=== PATIENT | female | born 1985 | race Caucasian/White ===

== ENCOUNTER 2016-07-13 21:00 | Emergency (ER) | payer OTHER ==
[2016-07-13 21:30] VITALS: BP 124/72
[2016-07-13] MEDS ORDERED: predniSONE TAB* 20 MG PO ONE (21:42)
[2016-07-13] MEDS ORDERED: Cephalexin CAP* 500 MG PO ONE (21:42)
--- NOTE | 2016-07-13 21:45 | UC ---
Throat Pain/Nasal Ar HPI - HPI Summary HPI Summary: 30 yo female with 5 day hx of sore throat also some n/v/d but none today no f/c - History of Current Complaint Chief Complaint: UCGeneralIllness Stated Complaint: ST/FEVER/CHILLS Time Seen by Provider: 07/13/16 21:21 Hx Obtained From: Patient Hx Last Menstrual Period: 05/03/2016 Onset/Duration: Gradual Onset, Lasting Days Severity: Moderate Pain Intensity: 4 Pain Scale Used: 0-10 Numeric Cough: None Associated Signs & Symptoms: Negative: Dysphagia, FB Sensation, Drooling, Wheezing, Hoarseness, Sinus Discomfort, Nasal Discharge, Fever, Vomiting, Rash - Epiglottits Risk Factors Epiglottis Risk Factors: Negative - Allergies/Home Medications Allergies/Adverse Reactions: Allergies Allergy/AdvReac Type Severity Reaction Status Date / Time No Known Allergies Allergy Verified 07/13/16 21:12 Home Medications: Home Medications Ibuprofen TAB* [Advil TAB*] 600 mg PO Q8H PRN 07/13/16 [History Confirmed ] metFORMIN* [Glucophage 500 MG TAB *] 500 mg PO BID 07/13/16 [History Confirmed 07/13/16] PMH/Surg Hx/FS Hx/Imm Hx Previously Healthy: Yes - PCOS Respiratory History Of: Reports: Asthma - Surgical History Surgical History: None - Family History Known Family History: Positive: Respiratory Disease - sacroid, Other - breast CA , lymphoma Family History: no cardio vascular issues in family - Social History Alcohol Use: Rare Substance Use Type: None Smoking Status (MU): Former Smoker Type: Cigarettes Length of Time of Smoking/Using Tobacco: 6 Years Have You Smoked in the Last Year: Yes When Did the Patient Quit Smoking/Using Tobacco: 2 WKS Household Exposure Type: Cigarettes - Immunization History Most Recent Influenza Vaccination: Not the 2015/2016 Season Review of Systems Constitutional: Fatigue Skin: Negative Eyes: Negative ENT: Sore Throat Respiratory: Negative Cardiovascular: Negative Gastrointestinal: Vomiting - resolved, Diarrhea - resolved Genitourinary: Negative Motor: Negative Neurovascular: Negative Musculoskeletal: Negative Neurological: Headache Psychological: Negative All Other Systems Reviewed And Are Negative: Yes Physical Exam Triage Information Reviewed: Yes Appearance: Well-Appearing, No Pain Distress, Well-Nourished Vital Signs: Initial Vital Signs Temp 97.9 F 07/13/16 21:05 Pulse 82 07/13/16 21:05 Resp 16 07/13/16 21:05 BP 124/72 07/13/16 21:05 Pulse Ox 99 07/13/16 21:05 Vital Signs Reviewed: Yes Eyes: Positive: Conjunctiva Clear ENT: Positive: Hearing grossly normal, Pharyngeal erythema, TMs normal, Tonsillar swelling. Negative: Trismus, Muffled/hoarse voice Dental: Negative: Dental Fracture @, Abscess @ Neck: Positive: Supple, Nontender, Enlarged Nodes @ - ant cervical Respiratory: Positive: Lungs clear, Normal breath sounds, No respiratory distress Cardiovascular: Positive: RRR, No Murmur Abdomen Description: Positive: Nontender, No Organomegaly, Soft. Negative: CVA Tenderness (R), CVA Tenderness (L), Hepatomegaly, Splenomegaly Bowel Sounds: Positive: Present Musculoskeletal: Positive: ROM Intact, No Edema Neurological Exam: Normal Neurological: Positive: Alert, Muscle Tone Normal Psychological Exam: Normal Skin Exam: Normal Skin: Negative: rashes Throat Pain/Nasal Course/Dx - Differential Dx/Diagnosis Provider Diagnoses: acute tonsillitis Discharge - Discharge Plan Condition: Stable Disposition: HOME Prescriptions: Cephalexin CAP* [Keflex 500 CAP*] 500 mg PO BID #18 cap Prednisone 60 mg PO DAILY #6 tab Patient Education Materials: Tonsillitis (ED) Forms: *Work Release Referrals: LINDA Hamilton [Primary Care Provider] - 3 Days (if not better) Additional Instructions: rest fluids tylenol
== END 2016-07-13 22:02 | disposition home or self-care (01) ==
LOC: UCCORT 21:00
DX: J03.90 Acute tonsillitis, unspecified (principal); Z87.891 Personal history of nicotine dependence
CPT/HCPCS: 87651; 99212; A9270-GY; G0463; J7512

== ENCOUNTER 2017-03-16 11:12 | Emergency (ER) | payer OTHER ==
[2017-03-16 11:38] VITALS: BP 152/73
--- NOTE | 2017-03-16 11:59 | ED ---
Throat Pain/Nasal Congestion - HPI Summary HPI Summary: 31 yr old female with the complaint of coughing, runny nose, sore throat and fever. Onset of symptoms three days ago. She has been having mostly throat pain, 6/10, non radiating. She has also complaints of fever 101 yesterday, and took tylenol with improvement. She has not had NVD. She does not believe any chance of . - History of Current Complaint Chief Complaint: UCRespiratory Time Seen by Provider: 03/16/17 11:35 - Allergies/Home Medications Allergies/Adverse Reactions: Allergies Allergy/AdvReac Type Severity Reaction Status Date / Time No Known Allergies Allergy Verified 03/16/17 11:30 Home Medications: Home Medications Acetaminophen [Eq Pain Reliever] 1,000 mg PO PRN 03/16/17 [History] PMH/Surg Hx/FS Hx/Imm Hx Respiratory History: Reports: Hx Asthma Infectious Disease History: No Infectious Disease History: Denies: Traveled Outside the [place] in Last 30 Days - Family History Known Family History: Positive: None, Respiratory Disease - sacroid, Other - breast CA, lymphoma Family History: no cardio vascular issues in family - Social History Alcohol Use: Rare Substance Use Type: Reports: None Smoking Status (MU): Former Smoker Type: Cigarettes Length of Time of Smoking/Using Tobacco: 6 Years Have You Smoked in the Last Year: Yes Review of Systems Positive: Fever, Chills Positive: Sore Throat Positive: Cough All Other Systems Reviewed And Are Negative: Yes Physical Exam Triage Information Reviewed: Yes Vital Signs On Initial Exam: Initial Vitals Temp Pulse Resp BP Pulse Ox 97.4 F 81 18 152/73 100 03/16/17 11:32 03/16/17 11:32 03/16/17 11:32 03/16/17 11:32 03/16/17 11:32 Vital Signs Reviewed: Yes Appearance: Positive: Well-Appearing, No Pain Distress Skin: Positive: Skin Color Reflects Adequate Perfusion Head/Face: Positive: Normal Head/Face Inspection Eyes: Positive: EOMI ENT: Positive: Normal ENT inspection, Pharynx normal, TMs normal Neck: Positive: Supple, Nontender Respiratory/Lung Sounds: Positive: Clear to Auscultation, Breath Sounds Present Cardiovascular: Positive: RRR. Negative: Murmur Abdomen Description: Positive: Nontender Musculoskeletal: Positive: Strength/ROM Intact Neurological: Positive: Sensory/Motor Intact, Alert, Oriented to Person Place, Time, CN Intact II-III Psychiatric: Positive: Normal - Kamran Coma Scale Best Eye Response: 4 - Spontaneous Best Motor Response: 6 - Obeys Commands Best Verbal Response: 5 - Oriented Diagnostics - Vital Signs Vital Signs Temp Pulse Resp BP Pulse Ox 03/16/17 11:32 97.4 F 81 18 152/73 100 - Laboratory Lab Statement: Any lab studies that have been ordered have been reviewed, and results considered in the medical decision making process. EENT Course/Dx - Course Course Of Treatment: 31 yr old with cough, sore throat. Neg Influenza and rapid strep. - Diagnoses Provider Diagnoses: Upper respiratory infection Discharge - Discharge Plan Condition: Good Disposition: HOME Patient Education Materials: Upper Respiratory Infection (ED) Forms: *Work Release Referrals: LINDA Hamilton [Primary Care Provider] - 2 Days
== END 2017-03-16 12:45 | disposition home or self-care (01) ==
LOC: UCCORT 11:12
DX: J06.9 Acute upper respiratory infection, unspecified (principal); J45.909 Unspecified asthma, uncomplicated; Z87.891 Personal history of nicotine dependence
CPT/HCPCS: 87502; 87651; 99211; G0463

== ENCOUNTER 2018-05-19 18:15 | Emergency (ER) | payer OTHER ==
[2018-05-19 19:11] VITALS: BP 126/48
[2018-05-19 19:20] LABS: Influenza A Molecular POSITIVE (Negative)
--- NOTE | 2018-05-19 19:23 | UC ---
General HPI - HPI Summary HPI Summary: 1. pt c/o a headache since 05/15/18. hx migraines and this is the same. describes as "frontal lobe pain" into " back of head and neck". not abrupt or worst JAMISON. no hx injury. does have noise sensitivity. Ran out of Tramadol and is requesting a refill. 2. Has been having some sinus congestion for a couple of weeks. past 2 days developed sinus pain with chills/fever to 101 and body aches. no cp SOB n/v/d. - History of Current Complaint Chief Complaint: UCGeneralIllness Stated Complaint: HEADACHE Time Seen by Provider: 05/19/18 19:10 Hx Obtained From: Patient Hx Last Menstrual Period: 05/14/18 Pain Intensity: 10 - Allergy/Home Medications Allergies/Adverse Reactions: Allergies Allergy/AdvReac Type Severity Reaction Status Date / Time bupropion [From Wellbutrin] AdvReac suicidal Verified 05/19/18 19:04 Home Medications: Home Medications Escitalopram Oxalate [Lexapro 20 mg] 20 mg PO BEDTIME 05/19/18 [History Confirmed 05/19/18] PMH/Surg Hx/FS Hx/Imm Hx - Additional Past Medical History Additional PMH: PCOS Respiratory History: Asthma Neurological History: Migraine Psychological History: Depression - Surgical History Surgical History: None - Family History Known Family History: Positive: None, Respiratory Disease - sacroid, Other - breast CA, lymphoma Family History: no cardio vascular issues in family - Social History Alcohol Use: Rare Substance Use Type: None Smoking Status (MU): Former Smoker Type: Cigarettes Length of Time of Smoking/Using Tobacco: 6 Years Have You Smoked in the Last Year: Yes When Did the Patient Quit Smoking/Using Tobacco: 2 WKS Household Exposure Type: Cigarettes - Immunization History Most Recent Influenza Vaccination: Not the 2016/2016 Season Review of Systems All Other Systems Reviewed And Are Negative: Yes Constitutional: Positive: Fever, Chills Skin: Positive: Negative Eyes: Positive: Negative ENT: Positive: Sinus Congestion Respiratory: Positive: Negative Cardiovascular: Positive: Negative Gastrointestinal: Positive: Negative Genitourinary: Positive: Negative Motor: Positive: Negative Neurovascular: Positive: Negative Musculoskeletal: Positive: Myalgia Neurological: Positive: Headache Psychological: Positive: Negative Physical Exam Triage Information Reviewed: Yes Appearance: Ill-Appearing - but non toxic Vital Signs: Initial Vital Signs Temp 99.1 F 05/19/18 19:00 Pulse 110 05/19/18 19:00 Resp 16 05/19/18 19:00 BP 126/48 05/19/18 19:00 Pulse Ox 100 05/19/18 19:00 Vital Signs Reviewed: Yes Eyes: Positive: Conjunctiva Clear ENT: Positive: Pharynx normal, Nasal congestion, TMs normal. Negative: Nasal drainage, Sinus tenderness Neck: Positive: Supple, Nontender, No Lymphadenopathy Respiratory: Positive: No respiratory distress, Decreased breath sounds Cardiovascular: Positive: No Murmur, Brisk Capillary Refill, Tachycardia Abdomen Description: Positive: Nontender, No Organomegaly, Soft Bowel Sounds: Positive: Present Musculoskeletal: Positive: ROM Intact Neurological: Positive: Other: - A&Ox3. CN 2-12 grossly intact. Steady gait. Gross s/v/m intact x4. Psychological: Positive: Normal Response To Family, Age Appropriate Behavior Skin Exam: Normal Skin: Negative: Rashes Diagnostics - Laboratory Diagnostic Studies Completed/Ordered: Influenza A positive. Course/Dx - Course Course Of Treatment: Istop checked. - Differential Dx - Multi-Symptom Differential Diagnoses: Other - sinusitis/ asthma/ flu/ migraine/ medication refill - Diagnoses Provider Diagnosis: Influenza A Discharge - Sign-Out/Discharge Documenting (check all that apply): Patient Departure All imaging exams completed and their final reports reviewed: No Studies - Discharge Plan Condition: Stable Disposition: HOME Prescriptions: Albuterol HFA INHALER* [Ventolin HFA Inhaler*] 2 puff INH Q6H PRN #1 mdi PRN Reason: Cough Oseltamivir CAP* [Tamiflu CAP*] 75 mg PO BID 5 Days #10 cap traMADol TAB* [Ultram*] 50 mg PO Q6HR PRN #10 tab MDD 4 PRN Reason: Headache Patient Education Materials: Influenza (ED) Forms: *Work Release Referrals: Chinyere Chilel [Primary Care Provider] - 5 Days - Billing Disposition and Condition Condition: STABLE Disposition: Home
== END 2018-05-19 19:36 | disposition home or self-care (01) ==
LOC: UCCORT 18:15
DX: J10.1 Influenza due to other identified influenza virus with other respiratory manifestations (principal); Z88.8 Allergy status to other drugs, medicaments and biological substances; Z87.891 Personal history of nicotine dependence
CPT/HCPCS: 99212; G0463

== ENCOUNTER 2019-01-11 07:08 | Emergency (ER) | payer MEDICAID, OTHER ==
[2019-01-11 07:27] VITALS: BP 121/77
--- NOTE | 2019-01-11 07:37 | UC ---
Abdominal Pain Female HPI - HPI Summary HPI Summary: abdominal pain x 4 days pain is at RLQ abd , pain is severe , sharp 7 out of 10 radiating to her right pelvic area worse with eating and movement, nothing makes it better no fever, + chills, + vomiting no diarrhea, no urinary sx - History of Current Complaint Chief Complaint: UCAbdominalPain Stated Complaint: SEVERE STOMACH PAIN Time Seen by Provider: 01/11/19 07:11 Hx Obtained From: Patient Hx Last Menstrual Period: 12/14/18 ?: No Onset/Duration: Gradual Onset, Lasting Days - 4, Still Present Timing: Constant Severity Initially: Severe Severity Currently: Severe Pain Intensity: 7 Location: Discrete At: RLQ Radiates: Yes Radiates to: RLQ Character: Sharp Aggravating Factor(s): Food, Movement Alleviating Factor(s): Nothing Associated Signs and Symptoms: Positive: Nausea, Vomiting. Negative: Fever, Cough, Chest Pain, Dizzy, Back Pain, Constipation, Blood in Stool, Urinary Symptoms, Decreased Appetite, Vaginal Bleeding Allergies/Adverse Reactions: Allergies Allergy/AdvReac Type Severity Reaction Status Date / Time bupropion [From Wellbutrin] AdvReac suicidal Verified 01/11/19 07:27 Home Medications: Home Medications Cyclobenzaprine (NF) [Cyclobenzaprine 5 MG (NF)] 1 - 2 tab PO BEDTIME 01/11/19 [ History Confirmed 01/11/19] Prazosin CAP* [Minipress CAP*] 1 tab PO BEDTIME 01/11/19 [History Confirmed ] PMH/Surg Hx/FS Hx/Imm Hx - Additional Past Medical History Additional PMH: PCOD Respiratory History: Asthma - Surgical History Surgical History: None - Family History Known Family History: Positive: None, Respiratory Disease - sacroid, Other - breast CA, lymphoma Family History: no cardio vascular issues in family - Social History Alcohol Use: Rare Substance Use Type: Marijuana Substance Use Comment - Amount & Last Used: occasionally Smoking Status (MU): Heavy Every Day Tobacco Smoker Type: Cigarettes Length of Time of Smoking/Using Tobacco: 6 Years Have You Smoked in the Last Year: Yes - vape When Did the Patient Quit Smoking/Using Tobacco: 2 WKS Household Exposure Type: Cigarettes - Immunization History Most Recent Influenza Vaccination: Not the Season Review of Systems All Other Systems Reviewed And Are Negative: Yes Constitutional: Positive: Fatigue Skin: Positive: Negative Eyes: Positive: Negative ENT: Positive: Negative Respiratory: Positive: Negative Cardiovascular: Positive: Negative Gastrointestinal: Positive: Abdominal Pain, Vomiting, Nausea Genitourinary: Positive: Negative Is Patient Immunocompromised?: No Physical Exam Triage Information Reviewed: Yes Appearance: Well-Appearing, Pain Distress, Obese Vital Signs: Initial Vital Signs Temp 98.1 F 01/11/19 07:22 Pulse 87 01/11/19 07:22 Resp 18 01/11/19 07:22 BP 121/77 01/11/19 07:22 Pulse Ox 100 01/11/19 07:22 Vital Signs Reviewed: Yes Eye Exam: Normal Eyes: Positive: Conjunctiva Clear ENT: Positive: Normal ENT inspection, Hearing grossly normal, Pharynx normal Neck: Positive: Supple, Nontender, No Lymphadenopathy Respiratory: Positive: Chest non-tender, Lungs clear, Normal breath sounds Cardiovascular: Positive: RRR, No Murmur, Pulses Normal Abdomen Description: Positive: Soft, Guarding, Other: - RLQ tenderness. Negative: CVA Tenderness (R), CVA Tenderness (L), Distended Bowel Sounds: Positive: Present Musculoskeletal Exam: Normal Musculoskeletal: Positive: Strength Intact, ROM Intact, No Edema Neurological: Positive: Alert Skin Exam: Normal Abd Pain Female Course/Dx - Differential Dx/Diagnosis Provider Diagnosis: Abdominal pain, RLQ abdominal pain Discharge ED - Sign-Out/Discharge Documenting (check all that apply): Patient Departure All imaging exams completed and their final reports reviewed: No Studies - Discharge Plan Condition: Stable Disposition: HOME Patient Education Materials: Acute Abdominal Pain (ED) Referrals: Chinyere Chilel [Primary Care Provider] - Additional Instructions: please go to [facility] ED for evaluation and treatment of severe abdominal pain may need stat blood work / stat CT to r/o acute appendicitis - Billing Disposition and Condition Condition: STABLE Disposition: Home
== END 2019-01-11 07:40 | disposition home or self-care (01) ==
LOC: UCCORT 07:08
DX: R10.31 Right lower quadrant pain (principal); F17.210 Nicotine dependence, cigarettes, uncomplicated
CPT/HCPCS: 99212; G0463